=== PATIENT | male | born 1995 | race Caucasian/White ===

== ENCOUNTER 2017-11-24 23:21 | Emergency (ER) | payer BC ==
[~2017-11-24] VITALS: Ht 188 cm; Wt 59.0 kg
[~2017-11-24 23:21] MED LIST: DIPH50 PO; PRED10 PO
== END 2017-11-25 01:53 | disposition home or self-care (01) ==
LOC: ER 23:21
DX: S09.90XA Unspecified injury of head, initial encounter (principal); F10.129 Alcohol abuse with intoxication, unspecified; Y04.2XXA Assault by strike against or bumped into by another person, initial encounter
CPT/HCPCS: 70450; 99284-25

== ENCOUNTER 2019-10-30 14:07 | Emergency (ER) | payer OTHER, BC ==
[~2019-10-30] VITALS: Ht 182.9 cm; Wt 63.5 kg
== END 2019-10-30 16:58 | disposition home or self-care (01) ==
LOC: ER 14:07
DX: S81.812A Laceration without foreign body, left lower leg, initial encounter (principal); W17.2XXA Fall into hole, initial encounter; W45.8XXA Other foreign body or object entering through skin, initial encounter
CPT/HCPCS: 12032; 99282-25

== ENCOUNTER 2019-11-12 16:55 | Emergency (ER) | payer OTHER, BC ==
[~2019-11-12] VITALS: Ht 182.9 cm; Wt 63.5 kg
== END 2019-11-12 17:50 | disposition home or self-care (01) ==
LOC: ER 16:55
DX: S81.812D Laceration without foreign body, left lower leg, subsequent encounter (principal); W45.8XXD Other foreign body or object entering through skin, subsequent encounter

== ENCOUNTER 2021-02-05 | Emergency (ER) | payer BC ==
[~2021-02-05] VITALS: Ht 182.9 cm; Wt 72.6 kg
[2021-02-05] MEDS ORDERED: AMOCLA875 PO (05:15)
== END 2021-02-05 05:34 | disposition home or self-care (01) ==
LOC: ER
DX: S02.652A Fracture of angle of left mandible, initial encounter for closed fracture (principal); S02.609A Fracture of mandible, unspecified, initial encounter for closed fracture; S02.2XXA Fracture of nasal bones, initial encounter for closed fracture; Y04.8XXA Assault by other bodily force, initial encounter
CPT/HCPCS: 70486; 96372; 99284-25; A9270; J1885